=== PATIENT | female | born 1985 | race Caucasian/White ===

== ENCOUNTER 2018-08-10 12:12 | Inpatient (IN) | payer MEDICAID ==
[2018-08-10] MEDS ORDERED: Acetaminophen/Codeine 300-30 MG Tab PO PRN (19:41)
[2018-08-10] MEDS ORDERED: Oxytocin 10 Units/1 ML SDV IM PRN (19:41)
[2018-08-10] MEDS ORDERED: Lidocaine 1% 20 ML MDV INJECT ONE ×2 (19:44→21:02)
--- NOTE | 2018-08-10 19:48 | PCM.DEL ---
L & D Note - General Info Date of Service: 08/10/18 - Delivery Note Labor: Spontaneous Delivery Outcome: Livebirth Delivery Method: Spontaneous Vaginal Delivery-Single Delivery Mode: Spontaneous Presentation: OA Nuchal Cord: Present (1.5), Reduced Anesthetic: Lidocaine (Xylocaine) 1% Plain Local Anesthetic Volume: 3cc Episiotomy Type: Midline Laceration: 1st Degree Suture type: Vicryl Suture size: 4-0 Placenta: Intact, Spontaneous Resuscitation Needed: No Dime Box: Suctioned Delivery Comments (Free Text/Narrative):: 33-year-old came in in labor and she was AROM. She is beta strep negative. 38 27 weeks . EDC is 08/22/18. She had a normal female baby in OA position. One half nuchal cords were reduced. The baby came very fast and so the ER doc Dr. Sarabia was in attendance and the baby's . I walked in right after the baby was . I clamped the cord and it was cut. Baby was taken to the warmer. And then I did the repair in the usual fashion. Blood loss was less than 500 complications none. - General Info Date of Service: 08/10/18 - Patient Data Vitals - Most Recent: Last Vital Signs Temp 97.6 F 08/10/18 12:22 Pulse 69 08/10/18 15:30 Resp 18 08/10/18 12:22 BP 120/77 08/10/18 12:40 Pulse Ox Weight - Most Recent: 304 lb 8 oz Med Orders - Current: Current Medications Acetaminophen/Codeine Phosphate (Tylenol With Codeine No.3 300mg/30mg) 1 tab PO Q4H PRN PRN Reason: Pain (moderate 4-6) Ibuprofen (Motrin) 600 mg PO Q6H PRN PRN Reason: Pain Lidocaine HCl (Xylocaine 1%) 3 ml INJECT ONETIME ONE Stop: 08/10/18 19:45 Oxytocin (Pitocin) 10 unit IM ONETIME PRN PRN Reason: excessive vaginal bleeding Multivit/Folic Acid/Iron (-U) 1 each PO DAILY SHARON - Exam General: Alert, Oriented Neck: Supple Lungs: Normal Respiratory Effort - Problem List & Annotations (1) Vaginal delivery SNOMED Code(s): 419025407 Code(s): O80 - ENCOUNTER FOR FULL-TERM UNCOMPLICATED DELIVERY Status: Acute Current Visit: Yes - Problem List Review Problem List Initiated/Reviewed/Updated: Yes - My Orders Last 24 Hours: My Active Orders 08/10/18 19:41 Patient Status [ADT] Routine May Shower [RC] ASDIRECTED Up ad Charla [RC] ASDIRECTED Vital Signs [RC] PFP Acetaminophen/Codeine [Tylenol with Codeine No.3 300MG/30MG] 1 tab PO Q4H PRN Ibuprofen [Motrin] 600 mg PO Q6H PRN Oxytocin [Pitocin] 10 unit IM ONETIME PRN Assess Lochia [WOMSER] Per Unit Routine Assess Uterine Involution [WOMSER] Per Unit Routine Breast Pump [WOMSER] Per Unit Routine Ice Therapy [OM.PC] Per Unit Routine Perineal Care [OM.PC] Per Unit Routine Resuscitation Status Routine 08/10/18 19:42 Peripheral IV Discontinue [OM.PC] Routine 08/10/18 19:44 Lidocaine 1% [Xylocaine 1%] 3 ml INJECT ONETIME ONE 08/10/18 Dinner Regular Diet [DIET] 08/11/18 05:11 HEMOGLOBIN/HEMATOCRIT,HH [HEME] AM 08/11/18 09:00 Vit/FA/Fe Fumarate [-U] 1 each PO DAILY - Plan Plan:: 1. Normal orders. 2. Ibuprofen 600 g every 6 hours when necessary. If the pain is related that she can of Tylenol 3 one every 4 hours when necessary. 3. Patient plans to breast-feed. Okay for breast pump and continue vitamins. 4. H&H tomorrow 5. Regular diet and activity.
--- NOTE | 2018-08-10 20:00 | PN ---
DATE SEEN: 08/10/2018 SUBJECTIVE: This is a 33-year-old, 3, para 2, due date 08/30/2018, 38 and 2 weeks, group B negative, comes in jaret. She has very slow contractions of a change from 3 cm to 6 cm. heart tones are 140s. Abdomen is gravid. Cervix is 6, 90, and probably -1. ASSESSMENT: Multiparous in labor, term, group B negative. PLAN: AROM was done. Clear fluids. Vaginal delivery. /[id number] PE/MODL
[2018-08-11] MEDS: Ibuprofen 600 MG Tab PO PRN (07:58)
[2018-08-11] MEDS: Prenatal Multivitamin with Calcium/Folic Acid/Fe Fumarate Cap PO SCH (08:09)
[2018-08-11] MEDS: Iron Polysaccharides Complex 150 MG Cap PO SCH (10:28)
--- NOTE | 2018-08-11 10:54 | PN ---
DATE SEEN: 08/11/2018 SUBJECTIVE: Patient has no complaints. Status post bleeding slowing. Pain is under control and no leg swelling. OBJECTIVE: VITAL SIGNS: Blood pressure 123/68, pulse 83, respiratory rate 16, temperature 98.2. GENERAL: She is alert, in no acute distress. ABDOMEN: Fundus is firm. EXTREMITIES: Legs, no swelling. LABS: Hemoglobin is 9.3, hematocrit 29.4. ASSESSMENT: 1. day 1. 2. Anemia. She was anemic during . PLAN: Add iron once a day. Continue current care. /[id number] PE/MODL
[2018-08-12] MEDS: Iron Polysaccharides Complex 150 MG Cap PO SCH (08:28)
[2018-08-12] MEDS: Prenatal Multivitamin with Calcium/Folic Acid/Fe Fumarate Cap PO SCH (08:28)
[2018-08-12] MEDS: Ibuprofen 600 MG Tab PO PRN (10:24)
--- NOTE | 2018-08-12 13:04 | PN ---
DATE SEEN: 08/12/2018 SUBJECTIVE: The patient without complaints, minimal vaginal bleeding. She is and is doing well. No abdominal pain. No fevers. OBJECTIVE: VITAL SIGNS: Stable, afebrile. ABDOMEN: Fundus is firm. EXTREMITIES: Legs, no swelling. ASSESSMENT: day 2. PLAN: Discharge to home. /[id number] PE/MODL
--- NOTE | 2018-08-13 07:34 | DISCH ---
DISCHARGE DATE: 08/12/2018 ADMIT DIAGNOSES: Vaginal delivery, anemia. DISCHARGE DIAGNOSES: Vaginal delivery, anemia. REASON FOR HOSPITALIZATION: A 33-year-old, G3, P2, at 38+ weeks, beta strep negative. Delivered a healthy in OA position. See delivery note. day 2, vital signs were stable, afebrile. Hemoglobin was 9.3, started iron 150 mg a day. The patient had it at home but has not been using it, for the last few days anyway, and she did well. She started , that went well, day 2. Vital signs stable, afebrile, doing well. Minimal bleeding, vaginal discharge. DISCHARGE PLAN: 1. Discharge to home. 2. Diet is regular. 3. Activity as tolerated. 4. Medications: Use ibuprofen [id number] p.r.n. for pain, continue vitamins, and she has iron at home, take 1 a day for a month, and diet is regular, and then recheck in 6 weeks for check. /[id number] ERIN/JOSE
== END 2018-08-12 11:35 | disposition home or self-care (01) | DRG 807 ==
LOC: FB.OBCHECK 12:12 → FB.OB 12:15 → FB.OBCHECK 16:47
PROVIDERS: ADMIT Family Medicine; ATTEND Family Medicine
PROC: 0HQ9XZZ Repair Perineum Skin, External Approach (ICD-10-PCS; principal; 2018-08-10)
PROC: 10907ZC Drainage of Amniotic Fluid, Therapeutic from Products of Conception, Via Natural or Artificial Opening (ICD-10-PCS; principal; 2018-08-10)
PROC: 10E0XZZ Delivery of Products of Conception, External Approach (ICD-10-PCS; principal; 2018-08-10)
PROC: 0W8NXZZ Division of Female Perineum, External Approach (ICD-10-PCS; principal; 2018-08-10)
DX: O99.02 Anemia complicating childbirth (principal); Z37.0 Single live birth; D64.9 Anemia, unspecified; Z3A.38 38 weeks gestation of pregnancy; O70.0 First degree perineal laceration during delivery; O69.81X0 Labor and delivery complicated by cord around neck, without compression, not applicable or unspecified; O62.3 Precipitate labor
CPT/HCPCS: 36415; 59409; 85014; 85018; A9270-GY; J2590